=== PATIENT | male | born 1990 | race Caucasian/White ===

== ENCOUNTER 2024-02-20 14:53 | Emergency (ER) | payer SELFPAY ==
[2024-02-20] MEDS ORDERED: Ibuprofen 800 MG TAB ONE (15:57)
== END 2024-02-20 16:34 | disposition home or self-care (01) ==
LOC: MADERS 14:53
DX: M25.572 Pain in left ankle and joints of left foot (principal); F17.210 Nicotine dependence, cigarettes, uncomplicated
CPT/HCPCS: 99283